=== PATIENT | female | born 1975 | race Hispanic/Latino ===

== ENCOUNTER → 2023-08-28 10:22 | Outpatient (REF) | payer OTHER, SELFPAY ==
[2023-08-28 12:11] LABS: Glycohemoglobin (HgbA1c) 5.7 % (4.0-5.6)
[2023-08-28 12:17] LABS: ALT (SGPT) 32 U/L (0-35); AST (SGOT) 29 U/L (14-36); Albumin 4.7 g/dl (3.5-5.0); Alkaline Phosphatase 65 U/L (38-126); Blood Urea Nitrogen 14 mg/dl (7-17); Calcium 9.7 mg/dl (8.4-10.2); Carbon Dioxide 24 mmol/L (22-30); Chloride 105 mmol/L (98-107); Glucose 93 mg/dl (70-99); HDL Cholesterol 44 mg/dl; LDL Cholesterol, Calculated 111 mg/dl; Potassium 4.5 mmol/L (3.5-5.1); Sodium 139 mmol/L (135-145); Total Bilirubin 0.7 mg/dl (0.2-1.3); Total Cholesterol 175 mg/dl (50-199); Total Protein 7.4 g/dl (6.3-8.2); Triglyceride 102 mg/dl (10-149); Very Low Density Lipoprotein 20 mg/dl (0-30); eGFR > 60.00
[2023-08-28 12:22] LABS: Vitamin D, 25-OH*** 34.5 ng/mL (30-80)
[2023-08-28 12:55] LABS: Vitamin B12 683 pg/ml (239-931)
== END ==
LOC: CLINIC 10:22
PROVIDERS: ATTENDING PHYSICIAN Nurse Practitioner Acute Care
DX: E78.00 Pure hypercholesterolemia, unspecified (principal); R73.03 Prediabetes; Z00.00 Encounter for general adult medical examination without abnormal findings; Z85.41 Personal history of malignant neoplasm of cervix uteri
CPT/HCPCS: 36415; 80053; 80061; 82306; 82607; 83036

== ENCOUNTER 2024-10-28 22:21 | Emergency (ER) | payer SELFPAY ==
[2024-10-28 22:22] VITALS: BP 184/100
[2024-10-28 22:35] LABS: Hematocrit 46.2 % (37.0-47.0); Hemoglobin 16.2 g/dL (12.0-16.0); Mean Corp Hgb Conc. 35.1 g/dL (33.0-37.0); Mean Corpuscular Volume 84.6 fL (81.0-99.0); Nucleated Red Blood Cells % 0 %; Platelet Count 411 10^3/uL (130-400); Red Cell Dist. Width 13.4 % (11.5-14.5)
[2024-10-28 22:56] LABS: HCG, Serum Qualitative Screen Negative
[2024-10-28 22:59] LABS: ALT (SGPT) 48 U/L (0-35); AST (SGOT) 33 U/L (14-36); Albumin 5.3 g/dl (3.5-5.0); Alkaline Phosphatase 95 U/L (38-126); Blood Urea Nitrogen 16 mg/dl (7-17); Calcium 10.6 mg/dl (8.4-10.2); Carbon Dioxide 22 mmol/L (22-30); Chloride 103 mmol/L (98-107); Glucose 122 mg/dl (70-99); Lipase 66 U/L (23-300); Potassium 3.9 mmol/L (3.5-5.1); Sodium 137 mmol/L (135-145); Total Protein 8.9 g/dl (6.3-8.2); eGFR > 60.00
--- NOTE | 2024-10-28 23:39 | ED.GENMED ---
History of Present Illness
General
Chief Complaint: Abdominal Symptoms
Source: patient
Exam Limitations: none
Time Seen by Provider: 10/28/24 23:22
Nursing documentation reviewed up to this point in time: agreed with
History of Present Illness
History of Present Illness:
49-year-old female with a past medical history of uterine fibroids, migraines, GERD, prediabetes who presents emergency department today with concerns of abdominal pain, nausea and vomiting. Patient reports that she first noticed some symptoms last
night with some pain when she tried to go to sleep. She reports that the pain was so persistent that it woke her up from sleep. Patient has associated nausea and vomiting that started upon waking this morning. She reports the pain is primarily in
the epigastric region but occasionally will radiate lower. The pain does not radiate to the back. Patient denies any sick contacts. Patient denies any fevers or chills. [facility] who gave her famotidine which seemed to
improve her symptoms initially but then the discomfort returned. She also states that she has a mild headache as well. Patient states that she is not able to eat with this. Patient reports that the symptoms have caused her anxiety and have caused
her to hyperventilate. She denies any sick contacts. She denies any hematemesis, any dark tarry stools, any rectal bleeding.
Patient reports that currently she takes no prescription medications. She denies any pelvic pain. She denies any dysuria, hematuria.
Review of Systems
Review of Systems
All Other Systems: ROS reviewed and negative except as documented in HPI and ROS
EENT: Reports no symptoms
Respiratory: Reports no symptoms
Cardiac: Reports no symptoms
ABD/GI: Reports abdominal pain, nausea and vomiting
: Reports no symptoms
Musculoskeletal: Reports no symptoms
Skin: Reports no symptoms
Phy Exam
Physical Exam
Physical Exam:
General: Patient is well appearing and in no acute distress; non-toxic
Skin: Warm and dry, no rashes or lesions
Head: Normocephalic, atraumatic
Eyes: Sclera non-icteric. EOMs intact.
Cardiac: Regular rate and rhythm, no murmurs
Peripheral Vascular: No lower extremity swelling or edema
Pulm: Normal respiratory effort
Abdomen: Left-sided abdominal tenderness to palpation, no palpable masses
Neuro: CN II-XII intact, no focal neurologic deficits.
Psychiatric: Appropriate mood and affect.
Course
Orders/Labs/Results
Orders:
Orders
10/28/24 22:26
Test Result ONCE
10/28/24 22:29
Beta HCG Quantitative Urgent
Comment: ADD ON
Complete Blood Count/With Diff Urgent
Comprehensive Metabolic Panel Urgent
HCG, Serum Qualitative Screen Urgent
Lipase Urgent
10/28/24 23:34
0.9% Sodium Chloride 500 ml [Nss] 500 ml IV BOLUS
Acetaminophen [Tylenol] 650 mg PO NOW STA
Mag Hydrox/Al Hydrox/Simeth [Maalox] 30 ml Phenobarb/Hyoscy/Atropine/Scop [] 10 ml Viscous Lidocaine 2% [Xylocaine Viscous Cup] 10 ml PO NOW
Ondansetron Injectable [Zofran] 4 mg IV NOW STA
Pantoprazole [Protonix IV] 40 mg IV NOW STA
10/28/24 23:37
EKG- Treatment ONCE
10/28/24 23:43
Add On- LAB Urgent
Tests Added?: beta hcg
10/28/24 23:50
Troponin I Urgent
10/28/24 23:51
Phenobarb/Hyoscy/Atropine/Scop [] 10 ml .ROUTE .STK-MED ONE
10/28/24 23:52
Mag Hydrox/Al Hydrox/Simeth [Maalox] 30 ml .ROUTE .STK-MED ONE
Viscous Lidocaine 2% [Xylocaine Viscous Cup] 15 ml .ROUTE .STK-MED ONE
10/29/24
Electrocardiogram (*1) Stat
Comment: DONE EMR
10/29/24 00:49
CT Abd/pelvis W Iv Cont Urgent
Reason For Exam: diffuse abdominal pain radiating throughout
Abnormal Lab Results
10/28/24
22:29
WBC 11.3 H 10^3/uL
(4.8-10.8)
RBC 5.46 H 10^6/uL
(4.20-5.40)
Hgb 16.2 H g/dL
(12.0-16.0)
Plt Count 411 H 10^3/uL
(130-400)
Abs Immat Gran (auto) 0.1 H 10^3/uL
(0-0.05)
Absolute Neuts (auto) 8.7 H 10^3/uL
(1.4-6.5)
Absolute Monos (auto) 0.7 H 10^3/uL
(0.1-0.6)
Neutrophils % 77.3 H %
(42.2-75.2)
Lymphocytes % 15.0 L %
(20.5-51.1)
Creatinine 0.5 L mg/dL
(0.6-1.0)
Glucose 122 H mg/dl
(70-99)
Calcium 10.6 H mg/dl
(8.4-10.2)
ALT 48 H U/L
(0-35)
Total Protein 8.9 H g/dl
(6.3-8.2)
Albumin 5.3 H g/dl
(3.5-5.0)
10/28/24 22:29
10/28/24 22:29
Vital Signs
Initial and Last Documented VS:
Initial Vital Signs
Temp Pulse Resp BP Pulse Ox
97.2 F 98 28 184/100 100
10/28/24 22:22 10/28/24 22:22 10/28/24 22:22 10/28/24 22:22 10/28/24 22:22
Last Documented Vital Signs
Temp Pulse Resp BP Pulse Ox
97.2 F 65 16 135/105 95
10/28/24 22:22 10/29/24 02:38 10/29/24 02:38 10/29/24 02:38 10/29/24 02:38
MDM/Problems Addressed
Differential Diagnosis Includes:
Gastritis, duodenitis, gastroenteritis, diverticulitis, biliary colic, appendicitis
MDM/Problems Addressed:
49-year-old female with a past medical history of uterine fibroids, migraines, GERD, prediabetes who presents emergency department today with concerns of abdominal pain, nausea and vomiting. Patient reports that she first noticed some symptoms last
night with some pain when she tried to go to sleep. She reports that the pain was so persistent that it woke her up from sleep. Patient has associated nausea and vomiting that started upon waking this morning. She reports the pain is primarily in
the epigastric region but occasionally will radiate lower.
On physical exam, she is well-appearing, in no acute distress. There is mild left-sided abdomen. No abdominal distention. No palpable masses. Labs reviewed mild leukocytosis, no anemia. CMP reviewed no evidence of MAICOL no elevated BUN. LFTs
normal other than slightly elevated ALT. She was given Tylenol for her intermittent headache. Patient was given Protonix, and GI cocktail with complete relief of her pain. Patient had no further episodes of vomiting while here in the ER. Suspect
symptoms related to GERD/gastritis. Discussed follow-up with GI. Patient will continue her PPI at home. Discussed using Carafate as well for worsening episodes. Patient stable for discharge. She did go for CAT scan which was negative for acute
intra-abdominal pathology no evidence of bowel obstruction no acute inflammatory process there was evidence of a gallstone however no evidence of acute cholecystitis. Patient stable for discharge.
Chronic conditions affecting care:
HLP, GERD,migraines
*Pulse Oximetry
SaO2: 100
Oxygen Mode of Delivery: Room air
Patient hypoxic: no
*Critical Care Note
Total Time (30-74mins, 75-104mins- exclusive of procedures): Not Applicable
Update Note
Update Note:
2:30 AM, update, patient reports that she is feeling markedly improved and states that her pain has resolved. She has not had any further episodes of vomiting. Suspect GERD/gastritis. CAT scan findings reviewed with patient. Advised patient to
continue taking omeprazole.
ED Attending Note
-
Portions of this chart may have been created with voice recognition software.� Occasional wrong word or��sound alike� substitutions may have occurred due to the inherent limitations of voice recognition software.
Discharge Plan
Departure
Patient Disposition: Home (Routine Discharge)
Date of Disposition: 10/29/24
Time of Disposition: 02:47
Patient with high blood pressure during this ER visit?: Yes
Condition: Good
Discharge Problem:
GERD (gastroesophageal reflux disease), Acute epigastric pain
Instructions: Nausea and Vomiting, Adult (DC), Abdominal Pain, BLOOD PRESSURE
Prescriptions:
New
sucralfate [Carafate] 100 mg/mL suspension
10 ml PO BID Qty: 300 0RF
No Action
topiramate 25 mg Tablet
25 mg PO HS
famotidine 20 mg Tablet
20 mg PO DAILYPRN PRN (Reason: GERD)
cyanocobalamin (vitamin B-12) [Vitamin B-12] 500 mcg Tablet
500 mcg PO DAILY
amitriptyline 10 mg Tablet
5 mg PO HS
Rx Instructions:
after dinner
rizatriptan 10 mg Tablet,Disintegrating
10 mg PO PRN PRN (Reason: migraines)
naproxen sodium [Aleve] 220 mg Tablet
440 mg PO PRN PRN (Reason: pain)
fenofibrate 150 mg Capsule
150 mg PO DAILY
turmeric root extract 500 mg Capsule
500 mg PO DAILY
Probiotic 10 billion cell Capsule
10,000 mmu cells PO DAILY
acetaminophen 325 mg Tablet
650 mg PO Q4HPRN PRN (Reason: mild pain) Qty: 0 0RF
ibuprofen 600 mg Tablet
600 mg PO Q4HPRN PRN (Reason: mild cramps) Qty: 0 0RF
Referrals:
[facility] [Provider Group] - Call in 1-3 days for appt
Salome Sanchez MD [Active, Gastroenterology] - Call in 1-3 days for appt
UNKNOWN - PT DOES,NOT KNOW [Family Provider]
Activity Restrictions/Additional Instructions:
Please follow up with primary care provider. Please continue to take your omeprazole daily. You also take Carafate.
Please call attached number to schedule an appointment to see gastroenterology for further evaluation.
PLEASE RETURN THE ER SHOULD YOU DEVELOP A RETURN OF YOUR SYMPTOMS, INTRACTABLE NAUSEA OR VOMITING, FEVERS OR CHILLS, DARK TARRY STOOLS, INABILITY TO TOLERATE ORAL INTAKE, CHEST PAIN, SHORTNESS OF BREATH, OR ANY OTHER SIGNS OR SYMPTOMS WORRISOME TO
YOU.
Interventions
Interventions:
*Risk Screen - Suicide Last Done: 10/29/24 00:08
*General Assessment Last Done: 10/29/24 00:08
*Neglect/Abuse Screening Last Done: 10/29/24 00:08
*ED- Fall Risk Assessment Last Done: 10/29/24 00:08
*ED COVID-19 Vaccine History Last Done: 10/29/24 00:08
*Nursing Disposition Last Done: 10/29/24 02:59
PN-Vsazyh-Eritmigrsv Assessment Last Done: 10/29/24 00:50
Discharge Date and Time
Discharge Date/Time: 10/29/24 02:59
Print Language: FRENCH
[2024-10-28] MEDS: PROTONIX IV 40 MG IV (23:52)
[2024-10-28] MEDS: TYLENOL 650 MG PO (23:52)
[2024-10-28] MEDS: ZOFRAN 4 MG IV (23:52)
[2024-10-28] MEDS: NSS 500 IV (23:53)
[2024-10-28] MEDS: MAALOX 30 PO (23:53)
[2024-10-29 00:22] LABS: Troponin I < 0.012 ng/ml
[2024-10-29 00:54] LABS: Beta HCG Quantitative < 2.39 mIU/ml
[2024-10-29 02:38] VITALS: BP 135/105
== END 2024-10-29 02:59 | disposition home or self-care (01) ==
LOC: EMR 22:21
PROVIDERS: Emergency Medicine; Physician Assistant; EMERGENCY PHYSICIAN Emergency Medicine
DX: K21.9 Gastro-esophageal reflux disease without esophagitis (principal); R03.0 Elevated blood-pressure reading, without diagnosis of hypertension; D72.829 Elevated white blood cell count, unspecified; E78.5 Hyperlipidemia, unspecified; G43.909 Migraine, unspecified, not intractable, without status migrainosus
CPT/HCPCS: 99284; 96374; 96375; 96361; 74177; 80053; 83690; 84484; 84702; 84703; 85025; 93005; Q9967